=== PATIENT | female | born 1970 | race Caucasian/White ===

== ENCOUNTER 2021-10-06 09:58 | Inpatient (IN) ==
--- NOTE | 2021-10-06 10:41 | Emergency Department Note ---
History of Present Illness General Chief complaint: Abdominal Pain Stated complaint: ABD PAIN, CRAMPS, HAD ENDOSCOPY ON THURSDAY Time Seen by Provider: 10/06/21 10:20 Source: patient Mode of arrival: ambulatory Limitations: no limitations History of Present Illness Provider complaint: Abdominal pain, diarrhea Maximum Pain Intensity: 7 This is a 51-year-old female who presents emerged from complaining of abdominal pain and diarrhea. Patient states she underwent endoscopy this past Thursday with Dr. Chavez of GI. She states she noticed some mild cramping which persisted and worsened into Thursday and yes. She states yesterday evening she began having multiple episodes of diarrhea. She denies noting any black or bloody stools. She states she is not been nauseated or had any vomiting. Patient states she noted the end of the week that her blood pressure was elevate d so she followed up with her PCP and was started on lisinopril 10 mg. Patient states she undergoes endoscopy due to history of Bullock's esophagitis and takes pantoprazole daily. She is also had esophageal stricture dilatation. She states during the EGD she was told that they did a test for bacteria. She has never had a colonoscopy. No other recent travel or known sick contacts. No other dietary changes. No history of IBS or IBD. Pt seen during a time of high acuity and national emergency pandemic while wearing PPE. Home Medications Medication Instructions Recorded Confirmed Type norethindrone 1 mg-ethinyl 1 tab PO DAILY #84 tab 05/06/21 10/06/21 Rx estradiol 20 mcg (21)-iron 75 mg (7) tablet (05/30 ()) pantoprazole 40 mg tablet,delayed 40 mg PO DAILY 05/06/21 10/06/21 History release lisinopril 5 mg tablet 5 mg PO HS 10/06/21 10/06/21 History Allergies Allergy/AdvReac Type Severity Reaction Status Date / Time No Known Allergies Allergy Verified 10/06/21 11:28 Past Med/Surg History Medical History (Updated 10/07/21 @ 18:38 by Astrid Gotti DO) Bullock's esophagus Common migraine without aura Dysmenorrhea Esophageal stricture Gastroparesis GERD (gastroesophageal reflux disease) Hiatal hernia Surgical History H/O lithotripsy H/O tubal ligation History of esophagogastroduodenoscopy (EGD) Family History Mother Dyslipidemia Osteoporosis Cervical cancer Grandmother (Maternal) Breast cancer Father Throat cancer Social History Smoking Status: Never smoker Second Hand Exposure: No; Do You Dip or Chew Tobacco: No; Tobacco Cessation Education Requested by Patient: No Hx Alcohol Use: Yes Hx Substance Use: No Preferred Language: Kyrgyz Communication Ability: Effective Personnel Coordinator Required: No Beliefs That Will Affect Care: None Current Living Situation: Spouse Current Living Situation Comment: lives in house Other Information That Helps Us Care for You: Yes (had an EGD on Thursday) Feels Safe at Home: Yes Safety Concerns: Feels Safe At This Time Assistive Devices: Glasses Review of Systems A total of 10 systems reviewed and were otherwise negative All systems reviewed & are unremarkable except as noted in HPI & below Physical Exam Vital Signs Vital Signs - 24 hr 10/06/21 10:11 10/06/21 11:02 10/06/21 11:03 Temperature 36.4 C L Temperature Source Temporal Artery Scan Pulse Rate 81 72 Pulse Rate [Right Finger] Pulse Rate from SpO2 Sensor 72 Pulse Rhythm [Right Finger] Pulse Strength [Right Finger] Respiratory Rate 18 17 Respiratory Effort / Characteristics Respiratory Depth Blood Pressure 101/70 90/78 L Blood Pressure [Right Arm] Blood Pressure Mean 80 82 Blood Pressure Mean [Right Arm] Pulse Oximetry 98 97 Oxygen Delivery Method Room Air Sepsis New/Unexplained Change in Mental Status No Sepsis Action Taken by Nursing No Action Required 10/06/21 11:30 10/06/21 11:42 10/06/21 13:00 Temperature Temperature Source Pulse Rate 65 Pulse Rate [Right Finger] 64 68 Pulse Rate from SpO2 Sensor 66 Pulse Rhythm [Right Finger] Regular Pulse Strength [Right Finger] Normal Respiratory Rate 22 18 18 Respiratory Effort / Characteristics Non-Labored Respiratory Depth Normal Blood Pressure Blood Pressure [Right Arm] 90/78 L 112/76 Blood Pressure Mean Blood Pressure Mean [Right Arm] 82 88 Pulse Oximetry 97 98 97 Oxygen Delivery Method Room Air Room Air Sepsis New/Unexplained Change in Mental Status Sepsis Action Taken by Nursing 10/06/21 14:26 10/06/21 14:30 10/06/21 15:00 Temperature Temperature Source Pulse Rate 66 64 Pulse Rate [Right Finger] Pulse Rate from SpO2 Sensor 71 Pulse Rhythm [Right Finger] Pulse Strength [Right Finger] Respiratory Rate 20 20 Respiratory Effort / Characteristics Respiratory Depth Blood Pressure Blood Pressure [Right Arm] Blood Pressure Mean Blood Pressure Mean [Right Arm] Pulse Oximetry 98 95 97 Oxygen Delivery Method Sepsis New/Unexplained Change in Mental Status Sepsis Action Taken by Nursing 10/06/21 15:05 Temperature Temperature Source Pulse Rate 66 Pulse Rate [Right Finger] Pulse Rate from SpO2 Sensor Pulse Rhythm [Right Finger] Pulse Strength [Right Finger] Respiratory Rate 20 Respiratory Effort / Characteristics Respiratory Depth Blood Pressure 112/65 Blood Pressure [Right Arm] Blood Pressure Mean 80 Blood Pressure Mean [Right Arm] Pulse Oximetry 98 Oxygen Delivery Method Sepsis New/Unexplained Change in Mental Status Sepsis Action Taken by Nursing GENERAL: alert, uncomfortable appearing, well nourished, no distress, non-toxic EYE EXAM: normal conjunctiva, PERRL and EOM's grossly intact OROPHARYNX: no exudate, no erythema, lips, buccal mucosa, and tongue normal and mucous membranes are moist NECK: supple, no nuchal rigidity, no adenopathy, non-tender LUNGS: Clear to auscultation. Normal chest wall mechanics, no w/r/r HEART: no murmurs, S1 normal and S2 normal ABDOMEN: abdomen soft, generalized discomfort with palpation, normo-active bowel sounds, no masses, no rebound or guarding. BACK: Back is symmetrical on inspection and there is no deformity, no midline tenderness, no CVA tenderness. SKIN: no rashes and no bruising UPPER EXTREMITIES: upper extremities are grossly normal. FROM, nml pulses b/l. LOWER EXTREMITIES: No pitting edema. FROM, nml pulses b/l. NEURO EXAM: Normal sensorium, cranial nerves II-XII grossly intact, normal speech, no gross weakness of arms, no gross weakness of legs. Gross sensation intact. Course Course 1322: Pt updated on results. 1335: Discussed with Dr. Chavez. 1415: Updated on discussion with GI. Administered Medications Hydromorphone HCl (Hydromorphone Inj 0.5 Mg/0.5 Ml Syr) 0.5 mg IV Q3H PRN PRN Reason: Pain (6,7,8,9,10) Stop: 10/20/21 20:15 Last Admin: 10/07/21 13:29 Dose: 0.5 mg Documented by: [id number] Admin: 10/07/21 08:22 Dose: 0.5 mg Documented by: [id number] Admin: 10/07/21 01:06 Dose: 0.5 mg Documented by: [id number] Admin: 10/06/21 21:01 Dose: 0.5 mg Documented by: [id number] Piperacillin Sod/Tazobactam (Sod 3.375 gm/ Dextrose) 115 mls @ 28.75 mls/hr IV Q8H KATHERYN; Protocol Stop: 10/16/21 20:15 Last Infusion: 10/07/21 17:49 Dose: 0 mls/hr Documented by: [id number] Admin: 10/07/21 13:57 Dose: 28.8 mls/hr Documented by: [id number] Infusion: 10/07/21 09:55 Dose: 0 mls/hr Documented by: [id number] Admin: 10/07/21 05:57 Dose: 28.8 mls/hr Documented by: [id number] Infusion: 10/07/21 02:31 Dose: 0 mls/hr Documented by: [id number] Admin: 10/06/21 22:31 Dose: 28.8 mls/hr Documented by: [id number] Pantoprazole Sodium 40 mg/ (Syringe) 10 mls @ 5 mls/min IV DAILY@1100 KATHERYN Stop: 11/06/21 10:59 Last Admin: 10/07/21 11:10 Dose: 5 mls/min Documented by: [id number] Ondansetron HCl (Ondansetron Inj 2 Mg/Ml 2 Ml Vial) 4 mg IV Q6H PRN PRN Reason: Nausea Stop: 11/05/21 20:15 Last Admin: 10/06/21 21:36 Dose: 4 mg Documented by: [id number] Discontinued Medications Dicyclomine HCl (Dicyclomine Hcl 10 Mg Cap) 10 mg PO NOW ONE Stop: 10/06/21 10:50 Last Admin: 10/06/21 11:32 Dose: 10 mg Documented by: [id number] Hydromorphone HCl (Hydromorphone Inj 0.5 Mg/0.5 Ml Syr) 0.25 mg IV NOW STA Stop: 10/06/21 16:15 Last Admin: 10/06/21 16:28 Dose: 0.25 mg Documented by: [id number] Sodium Chloride (Nss 1000ml) 1,000 mls @ 999 mls/hr IV .Q1H1M ONE Stop: 10/06/21 11:49 Last Infusion: 10/06/21 13:02 Dose: 0 mls/hr Documented by: [id number] Admin: 10/06/21 11:32 Dose: 999 mls/hr Documented by: [id number] Acetaminophen (Ofirmev) 1,000 mg in 100 mls @ 400 mls/hr IV NOW STA Stop: 10/06/21 11:03 Last Infusion: 10/06/21 11:48 Dose: 0 mls/hr Documented by: [id number] Admin: 10/06/21 11:32 Dose: 400 mls/hr Documented by: [id number] Sodium Chloride (Nss 1000ml) 1,000 mls @ 999 mls/hr IV .Q1H1M ONE Stop: 10/06/21 13:02 Last Infusion: 10/06/21 13:35 Dose: 0 mls/hr Documented by: [id number] Admin: 10/06/21 12:18 Dose: 999 mls/hr Documented by: [id number] Sodium Chloride (Nss 1000ml) 1,000 mls @ 250 mls/hr IV .Q4H KATHERYN Stop: 11/05/21 16:14 Last Infusion: 10/06/21 20:28 Dose: 0 mls/hr Documented by: [id number] Admin: 10/06/21 20:15 Dose: Not Given Documented by: [id number] Admin: 10/06/21 16:28 Dose: 250 mls/hr Documented by: [id number] Piperacillin Sod/Tazobactam Sod (Zosyn) 4.5 gm in 120 mls @ 240 mls/hr IV NOW ONE Stop: 10/06/21 17:14 Last Infusion: 10/06/21 17:24 Dose: 0 mls/hr Documented by: [id number] Admin: 10/06/21 16:54 Dose: 240 mls/hr Documented by: [id number] Lactated Ringer's (Lr) 1,000 mls @ 125 mls/hr IV .Q8H KATHERYN Stop: 10/07/21 12:15 Last Infusion: 10/07/21 13:58 Dose: 0 mls/hr Documented by: [id number] Admin: 10/07/21 05:00 Dose: 125 mls/hr Documented by: [id number] Infusion: 10/07/21 05:00 Dose: 125 mls/hr Documented by: [id number] Admin: 10/06/21 21:00 Dose: 125 mls/hr Documented by: [id number] Magnesium Sulfate/Dextrose (Magnesium Sulfate / D5w) 1 gm in 100 mls @ 50 mls/hr IV ONE ONE Stop: 10/07/21 00:38 Last Infusion: 10/07/21 03:04 Dose: 0 mls/hr Documented by: [id number] Admin: 10/07/21 01:04 Dose: 50 mls/hr Documented by: [id number] Ioversol (Optiray 320 125ml) 94 ml IV ONCE ONE Stop: 10/06/21 12:08 Last Admin: 10/06/21 12:08 Dose: 94 ml Documented by: [id number] Ketorolac Tromethamine (Ketorolac Tromethamine 15 Mg/Ml Vial) 10 mg IV NOW ONE Stop: 10/06/21 14:36 Last Admin: 10/06/21 14:50 Dose: 10 mg Documented by: [id number] Metoclopramide HCl (Metoclopramide Hcl Inj 5 Mg/Ml 2 Ml Vial) 5 mg IV ONE ONE Stop: 10/06/21 14:36 Last Admin: 10/06/21 14:50 Dose: 5 mg Documented by: [id number] Morphine Sulfate (Morphine Sulfate 4 Mg/Ml 1 Ml Carp\Vial) 4 mg IV NOW STA Stop: 10/06/21 13:44 Last Admin: 10/06/21 13:59 Dose: 4 mg Documented by: [id number] Medical Decision Making Differential Diagnosis Differential diagnoses includes but is not limited to gastritis, peptic ulcer disease, GERD, gallbladder disease, pancreatitis, small bowel obstruction, acute coronary syndrome, pericarditis, ischemic bowel, irritable bowel disease, irritable bowel syndrome, appendicitis, diverticulitis, malignancy, hernia, urinary tract infection, torsion, [/ectopic (if female)], perforation, trauma, infectious. Medical Records Attestation: I reviewed the patient's medical records. Home Medications Current Medication List: was personally reviewed by me Laboratory Data Attestation: I reviewed the patient's lab results. Result diagrams: 10/07/21 05:57 10/07/21 05:57 Lab Results 10/06/21 10/06/21 10/06/21 Range/Units 11:16 11:16 14:30 WBC 11.86 H (4.8-10.8) K/uL RBC 4.45 (4.2-5.4) M/uL Hgb 14.7 (12.0-16.0) g/dL Hct 42.5 (37-47) % MCV 95.5 (80-100) fL MCH 33.0 (25-34) pg MCHC 34.6 (32-36) g/dL RDW Std Deviation 44.0 (36.4-46.3) fL RDW Coeff of Heide 12.8 (11.5-14.5) % Plt Count 308 (130-400) K/uL MPV 10.6 H (7.4-10.4) fL Immature Gran % (Auto) 0.3 % Neut % (Auto) 75.7 % Lymph % (Auto) 17.8 % [place] % (Auto) 5.7 % Eos % (Auto) 0.3 % Baso % (Auto) 0.2 % Neut # (Auto) 8.98 H (1.4-6.5) K/uL Lymph # (Auto) 2.11 (1.2-3.4) K/uL [place] # (Auto) 0.68 H (0.11-0.59) K/uL Eos # (Auto) 0.04 (0-0.5) K/uL Baso # (Auto) 0.02 (0-0.2) K/uL Immature Gran # (Auto) 0.03 H (0.00-0.02) K/uL Sodium 136 (136-145) mmol/L Potassium 4.2 (3.5-5.1) mmol/L Chloride 106 (98-107) mmol/L Carbon Dioxide 20 L (21-32) mmol/L Anion Gap 10 (3-11) BUN 20 (6-23) mg/dl Creatinine 1.45 H (0.6-1.2) mg/dl Est Cr Clr Drug Dosing 45.8 ml/min Est GFR ( Amer) 48.5 ml/min Est GFR (Non-Af Amer) 41.9 ml/min BUN/Creatinine Ratio 13.8 (10-20) Glucose 99 (70-99(Fasting)) mg/dl Calcium 8.9 (8.5-10.1) mg/dl Magnesium 1.9 (1.7-2.4) mg/dl Total Bilirubin 0.6 (0.2-1.0) mg/dl AST 16 (13-39) U/L ALT 19 (7-52) U/L Alkaline Phosphatase 44 (34-104) U/L Total Protein 6.9 (6.0-8.3) gm/dl Albumin 3.9 (3.4-5.0) gm/dl Globulin 3.0 (2.5-4.0) gm/dl Albumin/Globulin Ratio 1.3 (0.9-2) Lipase 20 (11-82) U/L Stl C. cayetanensis PCR Not Detected (NotDetected) Stool Rotavirus A PCR Not Detected (NotDetected) Stl Adenov F 40/41 PCR Not Detected (NotDetected) Stool Astrovirus (PCR) Not Detected (NotDetected) Stool Campylobacter PCR Not Detected (NotDetected) Stl C. diff Tox A/B PCR Not Detected (NotDetected) Stool Cryptosporidium PCR Not Detected (NotDetected) Stl E.coli Shiga Tox PCR Not Detected (NotDetected) Stl Enterotoxigenic E PCR Not Detected (NotDetected) Stool EPEC (PCR) Not Detected (NotDetected) Stool EAEC (PCR) Not Detected (NotDetected) Stl E. histolytica PCR Not Detected (NotDetected) Stool Giardia Lamblia PCR Not Detected (NotDetected) Stool Salmonella PCR Not Detected (NotDetected) Stool Sapovirus (PCR) Not Detected (NotDetected) Stl P. shigelloides PCR Not Detected (NotDetected) Stl Shigella/EIEC PCR Not Detected (NotDetected) St Y.enterocolitica PCR Not Detected (NotDetected) Stool Vibrio (PCR) Not Detected (NotDetected) Stl Vibrio cholerae PCR Not Detected (NotDetected) Stl Norovirus GI/GII PCR Not Detected (NotDetected) SARS-CoV-2, RNA, NAAT (NEGATIVE) 05/29/22 Range/Units 16:30 WBC (4.8-10.8) K/uL RBC (4.2-5.4) M/uL Hgb (12.0-16.0) g/dL Hct (37-47) % MCV (80-100) fL MCH (25-34) pg MCHC (32-36) g/dL RDW Std Deviation (36.4-46.3) fL RDW Coeff of Heide (11.5-14.5) % Plt Count (130-400) K/uL MPV (7.4-10.4) fL Immature Gran % (Auto) % Neut % (Auto) % Lymph % (Auto) % [place] % (Auto) % Eos % (Auto) % Baso % (Auto) % Neut # (Auto) (1.4-6.5) K/uL Lymph # (Auto) (1.2-3.4) K/uL [place] # (Auto) (0.11-0.59) K/uL Eos # (Auto) (0-0.5) K/uL Baso # (Auto) (0-0.2) K/uL Immature Gran # (Auto) (0.00-0.02) K/uL Sodium (136-145) mmol/L Potassium (3.5-5.1) mmol/L Chloride (98-107) mmol/L Carbon Dioxide (21-32) mmol/L Anion Gap (3-11) BUN (6-23) mg/dl Creatinine (0.6-1.2) mg/dl Est Cr Clr Drug Dosing ml/min Est GFR ( Amer) ml/min Est GFR (Non-Af Amer) ml/min BUN/Creatinine Ratio (10-20) Glucose (70-99(Fasting)) mg/dl Calcium (8.5-10.1) mg/dl Magnesium (1.7-2.4) mg/dl Total Bilirubin (0.2-1.0) mg/dl AST (13-39) U/L ALT (7-52) U/L Alkaline Phosphatase (34-104) U/L Total Protein (6.0-8.3) gm/dl Albumin (3.4-5.0) gm/dl Globulin (2.5-4.0) gm/dl Albumin/Globulin Ratio (0.9-2) Lipase (11-82) U/L Stl C. cayetanensis PCR (NotDetected) Stool Rotavirus A PCR (NotDetected) Stl Adenov F 40/41 PCR (NotDetected) Stool Astrovirus (PCR) (NotDetected) Stool Campylobacter PCR (NotDetected) Stl C. diff Tox A/B PCR (NotDetected) Stool Cryptosporidium PCR (NotDetected) Stl E.coli Shiga Tox PCR (NotDetected) Stl Enterotoxigenic E PCR (NotDetected) Stool EPEC (PCR) (NotDetected) Stool EAEC (PCR) (NotDetected) Stl E. histolytica PCR (NotDetected) Stool Giardia Lamblia PCR (NotDetected) Stool Salmonella PCR (NotDetected) Stool Sapovirus (PCR) (NotDetected) Stl P. shigelloides PCR (NotDetected) Stl Shigella/EIEC PCR (NotDetected) St Y.enterocolitica PCR (NotDetected) Stool Vibrio (PCR) (NotDetected) Stl Vibrio cholerae PCR (NotDetected) Stl Norovirus GI/GII PCR (NotDetected) SARS-CoV-2, RNA, NAAT NEGATIVE (NEGATIVE) Imaging Data Radiologist's Impression: Abdomen/Pelvis CT 10/06/21 10:49 CT SCAN OF THE ABDOMEN AND PELVIS WITH IV CONTRAST CLINICAL HISTORY: Generalized abdominal pain. Diarrhea. Recent endoscopy. COMPARISON STUDY: Abdominal ultrasound dated 09/21/2020. TECHNIQUE: Following the IV administration of 94 cc of Optiray 320, CT scan of the abdomen and pelvis is performed from the lung bases to the proximal femora. Images are reviewed in the axial, sagittal, and coronal planes. IV contrast was administered without complication. A dose lowering technique was utilized adhering to the principles of ALARA. CT DOSE: 566.81 mGy.cm FINDINGS: Lung bases: The heart is normal in size and without pericardial effusion. The lung bases are clear. A small hiatal hernia is noted. Liver: The contrast-enhanced liver is normal in size, contour, and attenuation. There is no intrahepatic biliary ductal dilatation. The hepatic veins and portal veins are patent. Gallbladder: Unremarkable. Spleen: Normal in size and attenuation. Pancreas: Unremarkable. Adrenal glands: Unremarkable. 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 The renal moieties are normal in size and without hydronephrosis. Foci of cortical scarring are noted in the left upper pole. The renal moieties enhance symmetrically. Small bilateral nonobstructing renal calculi measure up to 4 mm. A circumaortic left renal vein is incidentally noted. Abdominal vasculature: The abdominal aorta is normal in course and caliber. Bowel: There are markedly thick walled and edematous loops of small bowel in the right mid to lower abdomen with mucosal hyperemia, surrounding inflammation, and interloop fluid. The appearance is consistent with a nonspecific enteritis. This spares the distal/terminal ileum. The upstream small bowel loops are distended and fluid-filled measuring up to 2.8 cm in diameter. Liquid stool is noted in the colon. There is mild colonic diverticulosis without CT evidence of acute diverticulitis. The appendix is well-visualized and normal. Peritoneum: There is a small volume of perihepatic and perisplenic ascites. There is also a small amount of interloop fluid throughout the abdomen and fluid in the pelvis. No intraperitoneal free air is identified. There is a fat-con taining umbilical hernia. Lymphadenopathy: None. Pelvic viscera: The bladder is decompressed and appears circumferentially thick walled. The uterus and adnexa are normal as visualized. Skeletal structures: No lytic or blastic lesions are seen. IMPRESSION: 1. Findings are consistent with a severe nonspecific enteritis as detailed above. This is likely on an infectious or inflammatory basis and clinical correlation will be required. 2. There is no high-grade bowel obstruction. The upstream small bowel loops are distended and fluid-filled, and this likely represents low-grade/partial obstruction secondary to the small bowel edema. 3. There is interloop fluid and a small one of abdominopelvic ascites. 4. No intraperitoneal free air is identified. 5. Horseshoe kidney and bilateral nephrolithiasis. 6. The bladder wall appears circumferentially thickened. Correlate with clinical findings and urinalysis. 7. Additional findings as above. ACT 112: Negative or not required by law. Electronically signed by: Benjamin Lugo M.D. 10/06/2021 12:37 PM ECG Data Attestation: I personally reviewed and interpreted this ECG as follows: Indication: + abdominal pain Rate (beats per minute): 63 Rhythm: + normal sinus ECG Intervals/blocks: + Normal QRS and + Normal QT ECG [place]: + Normal ECG ST segments: + Nonspecific ST abnormalities MDM Narrative An order was placed for continuous cardiac monitoring. The monitor shows a rate of _60_ with _normal sinus_ rhythm. This is a 51-year-old female presents due to concern for worsening abdominal pain, diarrhea, after recent endoscopy. Patient referred by GI due to concern for postprocedural complication. Patient was afebrile hemodynamically stable. Labs drawn and sent and she was started on IV fluids and given medication for pain and nausea. CT did reveal significant enteritis which was creating the appearance of an evolving partial small bowel obstruction. Patient did receive several doses of IV pain medication. Due to concern for persistent symptoms as well as CT findings, case was discussed with GI and eventually with hospitalist for additional inpatient evaluation and management. Patient was made aware of all results, verbalized understanding, and was in agreement with plan. Impression & Plan Abdominal pain, Enteritis, Diarrhea, Dehydration Discharge Plan Visit Data Chief Complaint: Abdominal Pain Stated Complaint: ABD PAIN, CRAMPS, HAD ENDOSCOPY ON THURSDAY ED Provider: Astrid Gotti Discharge Problem: Abdominal pain, Enteritis, Diarrhea, Dehydration Patient Disposition: Admitted As Inpatient Discharge Instructions Interventions: ED Discharge Assessment Last Done: 10/06/21 19:58 Discharge Problem: Abdominal pain Qualifiers: Abdominal location: generalized Qualified Code(s): R10.84 - Generalized abdominal pain Diarrhea Qualifiers: Diarrhea type: unspecified type Qualified Code(s): R19.7 - Diarrhea, unspecified
[2021-10-06] MEDS ORDERED: SODIUM CHLORIDE 0.9% 1000ML 1,000 ML IV ONE ×2 (10:49→12:02)
[2021-10-06] MEDS ORDERED: DICYCLOMINE HCL 10 MG CAP PO ONE (10:49)
[2021-10-06] MEDS ORDERED: ACETAMINOPHEN 1,000 MG/100 ML VIAL IV STA (10:49)
[2021-10-06 11:36] LABS: Basophils # (auto) 0.02 K/uL (0-0.2); Basophils % (auto) 0.2 %; Eosinophils # (auto) 0.04 K/uL (0-0.5); Eosinophils % (auto) 0.3 %; Hematocrit (blood only) 42.5 % (37-47); Hemoglobin 14.7 g/dL (12.0-16.0); Immature Granulocytes # (auto) 0.03 K/uL (0.00-0.02); Immature Granulocytes % (auto) 0.3 %; Lymphocytes # (auto) 2.11 K/uL (1.2-3.4); Lymphocytes % (auto) 17.8 %; Mean Corpuscular Hgb Conc 34.6 g/dL (32-36); Mean Corpuscular Volume 95.5 fL (80-100); Mean Platelet Volume 10.6 fL (7.4-10.4); Monocytes # (auto) 0.68 K/uL (0.11-0.59); Monocytes % (auto) 5.7 %; Neutrophils # (auto) 8.98 K/uL (1.4-6.5); Neutrophils % (auto) 75.7 %; Platelet Count 308 K/uL (130-400); RDW Coefficient of Variation 12.8 % (11.5-14.5); Red Blood Count 4.45 M/uL (4.2-5.4); White Blood Count 11.86 K/uL (4.8-10.8)
[2021-10-06 11:47] LABS: Albumin Globulin Ratio 1.3 (0.9-2); Albumin Level 3.9 gm/dl (3.4-5.0); BUN Creatinine Ratio 13.8 (10-20); Bilirubin,Total 0.6 mg/dl (0.2-1.0); Calcium 8.9 mg/dl (8.5-10.1); Creatinine Clr Calc Pharmacy 45.8 ml/min; Est GFR (African American) 48.5 ml/min; Est GFR (Non-African American) 41.9 ml/min; Magnesium 1.9 mg/dl (1.7-2.4); Potassium 4.2 mmol/L (3.5-5.1); Total Protein 6.9 gm/dl (6.0-8.3)
[2021-10-06] MEDS ORDERED: OPTIRAY 320 125ml IV ONE (12:07)
--- NOTE | 2021-10-06 12:40 | CT Scan Report ---
CT SCAN OF THE ABDOMEN AND PELVIS WITH IV CONTRAST CLINICAL HISTORY: Generalized abdominal pain. Diarrhea. Recent endoscopy. COMPARISON STUDY: Abdominal ultrasound dated 09/21/2020. TECHNIQUE: Following the IV administration of 94 cc of Optiray 320, CT scan of the abdomen and pelvi s is performed from the lung bases to the proximal femora. Images are reviewed in the axial, sagittal , and coronal planes. IV contrast was administered without complication. A dose lowering technique wa s utilized adhering to the principles of ALARA. CT DOSE: 566.81 mGy.cm FINDINGS: Lung bases: The heart is normal in size and without pericardial effusion. The lung bases are clear. A small hiatal hernia is noted. Liver: The contrast-enhanced liver is normal in size, contour, and attenuation. There is no intrahepa tic biliary ductal dilatation. The hepatic veins and portal veins are patent. Gallbladder: Unremarkable. Spleen: Normal in size and attenuation. Pancreas: Unremarkable. Adrenal glands: Unremarkable. 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 The renal moieties are normal in size and without hydronephrosis. Foci of cortical scarring are noted in the left upper pole. The renal moieties enhanc e symmetrically. Small bilateral nonobstructing renal calculi measure up to 4 mm. A circumaortic left renal vein is incidentally noted. Abdominal vasculature: The abdominal aorta is normal in course and caliber. Bowel: There are markedly thick walled and edematous loops of small bowel in the right mid to lower a bdomen with mucosal hyperemia, surrounding inflammation, and interloop fluid. The appearance is consi stent with a nonspecific enteritis. This spares the distal/terminal ileum. The upstream small bowel l oops are distended and fluid-filled measuring up to 2.8 cm in diameter. Liquid stool is noted in the colon. There is mild colonic diverticulosis without CT evidence of acute diverticulitis. The appendix is well-visualized and normal. Peritoneum: There is a small volume of perihepatic and perisplenic ascites. There is also a small silvino unt of interloop fluid throughout the abdomen and fluid in the pelvis. No intraperitoneal free air is identified. There is a fat-containing umbilical hernia. Lymphadenopathy: None. Pelvic viscera: The bladder is decompressed and appears circumferentially thick walled. The uterus an d adnexa are normal as visualized. Skeletal structures: No lytic or blastic lesions are seen. IMPRESSION: 1. Findings are consistent with a severe nonspecific enteritis as detailed above. This is likely on a n infectious or inflammatory basis and clinical correlation will be required. 2. There is no high-grade bowel obstruction. The upstream small bowel loops are distended and fluid-f illed, and this likely represents low-grade/partial obstruction secondary to the small bowel edema. 3. There is interloop fluid and a small one of abdominopelvic ascites. 4. No intraperitoneal free air is identified. 5. Horseshoe kidney and bilateral nephrolithiasis. 6. The bladder wall appears circumferentially thickened. Correlate with clinical findings and urinaly sis. 7. Additional findings as above. ACT 112: Negative or not required by law. Electronically signed by: Benjamin Lugo M.D. 10/06/2021 12:37 PM
[2021-10-06] MEDS ORDERED: MoRPHine SULFATE 4 MG/ML 1 ML CARP\\VIAL IV STA (13:43)
[2021-10-06] MEDS ORDERED: KETOROLAC TROMETHAMINE 15 MG/ML VIAL IV ONE (14:35)
[2021-10-06] MEDS ORDERED: METOCLOPRAMIDE HCL INJ 5 MG/ML 2 ML VIAL IV ONE (14:35)
--- NOTE | 2021-10-06 14:51 | Electrocardiogram Report ---
Test Reason : Blood Pressure : / mmHG Vent. Rate : 063 BPM Atrial Rate : 063 BPM P-R Int : 110 ms QRS Dur : 072 ms QT Int : 396 ms P-R-T Axes : 025 042 056 degrees QTc Int : 405 ms Sinus rhythm with short [place] Otherwise normal ECG No previous ECGs available Confirmed by Elder Pan ([id number]) on 10/06/2021 2:51:43 PM Referred By: REFERRED SELF Confirmed By:Elder Pan
[2021-10-06 15:53] LABS: Adenovirus F 40/41 PCR Not Detected (NotDetected); Astrovirus PCR Not Detected (NotDetected); Campylobacter PCR Not Detected (NotDetected); Clostridium diff Toxin A/B PCR Not Detected (NotDetected); Cryptosporidium PCR Not Detected (NotDetected); Cyclospora cayetanensis PCR Not Detected (NotDetected); Entamoeba histolytica PCR Not Detected (NotDetected); Enteroaggregative E.coli(EAEC) Not Detected (NotDetected); Enteropathogenic E.coli (EPEC) Not Detected (NotDetected); Enterotoxigenic E.coli (ETEC) Not Detected (NotDetected); Giardia lamblia PCR Not Detected (NotDetected); Norovirus GI/GII PCR Not Detected (NotDetected); Plesiomonas shigelloides PCR Not Detected (NotDetected); Rotavirus A PCR Not Detected (NotDetected); Salmonella PCR Not Detected (NotDetected); Sapovirus PCR Not Detected (NotDetected); Shiga-like Toxin E.coli (STEC) Not Detected (NotDetected); Shigella/Enteroinvasive E.coli Not Detected (NotDetected); Vibrio cholerae PCR Not Detected (NotDetected); Vibrio species PCR Not Detected (NotDetected); Yersinia enterocolitica PCR Not Detected (NotDetected)
[2021-10-06] MEDS ORDERED: HYDROmorphone INJ 0.5 MG/0.5 ML SYR IV STA (16:14)
[2021-10-06] MEDS: SODIUM CHLORIDE 0.9% 1000ML 1,000 ML IV SCH ×2 (16:28→20:15)
[2021-10-06] MEDS ORDERED: PIPERACILLIN/TAZOBACTAM 4.5 GM/120 ML BAG IV ONE (16:45)
[2021-10-06] MEDS ORDERED: PIPERACILL/TAZOBAC CONSULT ACTIVE PRN ×2 (16:45→20:16)
--- NOTE | 2021-10-06 17:03 | History & Physical Report ---
Date of Service October 06, 2021 Assessment & Plan (1) Partial small bowel obstruction: Plan: - NPO with IVF; will defer NGT placement for now in absence of n/v - Consult [facility] - KUB in AM to monitor for progression. - CBC/BMP in AM. - Zofran or Phenergan ordered for nausea/vomiting. - IV Tylenol or Dilaudid ordered for pain. - Recently started on lisinopril 2 days ago, 10/04. ? if this is FELIPE inhibitor induced gut angioedema. Her symptoms did start prior to initiation of the medication, however became acutely worse after first 2 doses. (2) Enteritis: Plan: - As seen on CT A/P. Frequent nonbloody diarrhea last evening, without fever/chils - Stool panel neg; given recent EGD on Thursday (10/02) will place on Zosyn for now. (3) Acute kidney injury: Plan: - Cr 1.45, eGFR 42. No baseline labs. - Did just start lisinopril 5mg on Thursday; will hold for ANDREW/NPO status. - LRs 125 cc/hr. - Monitor on am labs. (4) Hypertension: Plan: - Hold lisinopril due to ANDREW - Will order 10 mg IV hydralazine q8h prn for SBP >180 and/or DBP >110. (5) Ventricular tachycardia: Plan: Patient had a 12 beat run of ventricular tachycardia in the ER that was asymptomatic Monitor on telemetry Check echocardiogram Make sure electrolytes remain replete (6) Bullock's esophagus: Plan: - Surveillance EGD last week 10/[address] Chavez. - Switch po Protonix to IV while NPO. (7) GERD (gastroesophageal reflux disease): Plan: - Admit to med/surg - SCDs for DVT ppx. - Full Code. History of Present Illness Chief Complaint: Abdominal pain x 4 days Primary Care Provider: Pedro Cruz Mrs. Salcedo is a 51-year-old female with past medical history significant for GERD w/ Bullock's esophagus, gastroparesis, migraines, and hypertension who presents today with worsening abdominal pain and diarrhea. She had a surveillance EGD on Thursday, 10/02 for her Bullock's esophagus, procedure went well without complications. morning, she developed mild abdominal cramping that she was able to tolerate at home, however it has become progressively worse. Last evening, her pain became so severe that she was unable to sleep throughout the night and began having frequent episodes of nonbloody diarrhea. She has been without fever/chills, nausea, or vomiting. Has not been eating or drinking much due to her symptoms. Had an isolated day of similar symptoms several weeks ago but without diarrhea, however reports she took a laxative at that time and had felt fine up until now. In ED, VS wnl and stable, labs largely unremarkable, significant for WBC 11.8, cr 1.45 (no baseline). Stool panel negative. CT a/p with findings consistent with a severe nonspecific enteritis and small bowel loops are distended and fluid-filled, ? low-grade/partial obstruction secondary to the small bowel edema. Allergies Allergy/AdvReac Type Severity Reaction Status Date / Time No Known Allergies Allergy Verified 10/06/21 11:28 Home Medications Medication Instructions Recorded Confirmed Type norethindrone 1 mg-ethinyl 1 tab PO DAILY #84 tab 05/06/21 10/06/21 Rx estradiol 20 mcg (21)-iron 75 mg (7) tablet (05/30 (28)) pantoprazole 40 mg tablet,delayed 40 mg PO DAILY 05/06/21 10/06/21 History release lisinopril 5 mg tablet 5 mg PO HS 10/06/21 10/06/21 History Past Med/Surg History Medical History (Updated 10/06/21 @ 22:33 by Tanika Marcos MD) Bullock's esophagus Common migraine without aura Dysmenorrhea Esophageal stricture Gastroparesis GERD (gastroesophageal reflux disease) Hiatal hernia Surgical History H/O lithotripsy H/O tubal ligation History of esophagogastroduodenoscopy (EGD) Family History Mother Dyslipidemia Osteoporosis Cervical cancer Grandmother (Maternal) Breast cancer Father Throat cancer Social History Smoking Status: Never smoker Second Hand Exposure: No; Do You Dip or Chew Tobacco: No; Tobacco Cessation Education Requested by Patient: No Hx Alcohol Use: Yes Hx Substance Use: No Preferred Language: Slovak Communication Ability: Effective Office Automation Clerk Required: No Beliefs That Will Affect Care: None Current Living Situation: Spouse Current Living Situation Comment: lives in house Other Information That Helps Us Care for You: Yes (had an EGD on Thursday) Feels Safe at Home: Yes Safety Concerns: Feels Safe At This Time Assistive Devices: Glasses Review of Systems Review of Systems: Constitutional: No fever/chills, weakness, fatigue, myalgias, anorexia, night sweats Eyes: No diplopia, no worsening or blurred vision ENT: normal hearing, no trouble swallowing Respiratory: No cough, sputum, dyspnea at rest or on exertion Cardiovascular: No chest pain, tightness or palpitations Abdomen: diffuse abdominal pain with nonbloody diarrhea; no nausea or vomiting : Denies dysuria, hematuria, increased urgency/frequency, urinary retention Musculoskeletal: No joint pain, calf pain, swelling Neurologic: No weakness, numbness/tingling, or balance problems Psychiatric: No anxiety or depression Skin: No rash or itch Physical Exam Physical Exam: General: awake, alert, no apparent distress Head: Normocephalic, atraumatic ENT: PERRL, EOMI, no pharyngeal exudate, mucous membranes moist Chest: Clear to auscultation, on room air, no adventitious breath sounds Cardiac: Regular rate and rhythm, no murmur, no JVD, normal peripheral pulses, good capillary refill Abdominal: diffusely TTP; NABS x 4 quadrants, soft, no rebound, guarding or tenderness Extremities: Normal inspection, no peripheral edema or erythema, calfs nontender to palpation Psych: Normal mood and affect Neuro: AAO x 3, strength intact bilaterally and rated 5/5, no motor deficits, speech is clear, no peripheral sensory deficits Skin: no rash or erythema Results & Data Results & Data ([facility]) Vital Signs (Past 12 Hours) Vital Signs Temp Pulse Pulse Resp BP BP Pulse Ox 10/06/21 16:00 69 18 97/61 L 95 10/06/21 15:30 55 L 19 96 10/06/21 15:05 66 20 112/65 98 10/06/21 15:00 64 20 97 10/06/21 14:30 66 20 95 10/06/21 14:26 98 10/06/21 13:00 68 18 112/76 97 10/06/21 11:42 64 18 90/78 L 98 10/06/21 11:30 65 22 97 10/06/21 11:03 72 17 97 10/06/21 11:02 90/78 L 10/06/21 10:11 36.4 C L 81 18 101/70 98 Laboratory Results Abnormal lab results 10/06/21 10/06/21 Range/Units 11:16 11:16 WBC 11.86 H (4.8-10.8) K/uL MPV 10.6 H (7.4-10.4) fL Neut # (Auto) 8.98 H (1.4-6.5) K/uL [place] # (Auto) 0.68 H (0.11-0.59) K/uL Immature Gran # (Auto) 0.03 H (0.00-0.02) K/uL Carbon Dioxide 20 L (21-32) mmol/L Creatinine 1.45 H (0.6-1.2) mg/dl Diagnostic Findings Abdomen/Pelvis CT 10/06/21 10:49 CT SCAN OF THE ABDOMEN AND PELVIS WITH IV CONTRAST CLINICAL HISTORY: Generalized abdominal pain. Diarrhea. Recent endoscopy. COMPARISON STUDY: Abdominal ultrasound dated 09/21/2020. TECHNIQUE: Following the IV administration of 94 cc of Optiray 320, CT scan of the abdomen and pelvis is performed from the lung bases to the proximal femora. Images are reviewed in the axial, sagittal, and coronal planes. IV contrast was administered without complication. A dose lowering technique was utilized adhering to the principles of ALARA. CT DOSE: 566.81 mGy.cm FINDINGS: Lung bases: The heart is normal in size and without pericardial effusion. The lung bases are clear. A small hiatal hernia is noted. Liver: The contrast-enhanced liver is normal in size, contour, and attenuation. There is no intrahepatic biliary ductal dilatation. The hepatic veins and portal veins are patent. Gallbladder: Unremarkable. Spleen: Normal in size and attenuation. Pancreas: Unremarkable. Adrenal glands: Unremarkable. 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 The renal moieties are normal in size and without hydronephrosis. Foci of cortical scarring are noted in the left upper pole. The renal moieties enhance symmetrically. Small bilateral nonobstructing renal calculi measure up to 4 mm. A circumaortic left renal vein is incidentally noted. Abdominal vasculature: The abdominal aorta is normal in course and caliber. Bowel: There are markedly thick walled and edematous loops of small bowel in the right mid to lower abdomen with mucosal hyperemia, surrounding inflammation, and interloop fluid. The appearance is consistent with a nonspecific enteritis. This spares the distal/terminal ileum. The upstream small bowel loops are distended and fluid-filled measuring up to 2.8 cm in diameter. Liquid stool is noted in the colon. There is mild colonic diverticulosis without CT evidence of acute diverticulitis. The appendix is well-visualized and normal. Peritoneum: There is a small volume of perihepatic and perisplenic ascites. There is also a small amount of interloop fluid throughout the abdomen and fluid in the pelvis. No intraperitoneal free air is identified. There is a fat- containing umbilical hernia. Lymphadenopathy: None. Pelvic viscera: The bladder is decompressed and appears circumferentially thick walled. The uterus and adnexa are normal as visualized. Skeletal structures: No lytic or blastic lesions are seen. IMPRESSION: 1. Findings are consistent with a severe nonspecific enteritis as detailed above. This is likely on an infectious or inflammatory basis and clinical c orrelation will be required. 2. There is no high-grade bowel obstruction. The upstream small bowel loops are distended and fluid-filled, and this likely represents low-grade/partial obstruction secondary to the small bowel edema. 3. There is interloop fluid and a small one of abdominopelvic ascites. 4. No intraperitoneal free air is identified. 5. Horseshoe kidney and bilateral nephrolithiasis. 6. The bladder wall appears circumferentially thickened. Correlate with clinical findings and urinalysis. 7. Additional findings as above. ACT 112: Negative or not required by law. Electronically signed by: Benjamin Lugo M.D. 10/06/2021 12:37 PM ECG Additional Comments: Sinus rhythm with short NC, otherwise normal ECG Code Status & VTE Plan Code Status Full Code. VTE Prophylaxis Plan VTE Prophylaxis will be ordered: Yes Supervising Physician Co-Signing Physician Notes PA Supervision Note: I personally saw and examined the patient. I verified all ortega points and agree with GARY Clark with the following exceptions and/or additions: This patient is a 51-year-old female with history of Bullock's esophagus, GERD, HTN who presents to the ER with 3 to 4 days of severe diffuse crampy abdominal pain followed by multiple loose nonbloody bowel movements. No fevers or chills. Some nausea but no vomiting. Feels abdominal bloating. O- Vitals reviewed Gen: AAOx3, NAD HEENT: Anicteric sclerae, EOMI CV: RRR no mgr nl S1S2 Pulm: CTAB no wcr Abd: +BS soft positive tenderness palpation across mid and lower abdomen without guarding or rebound, ND no masses or hernias Ext: No edema, 2+ DP pulses Skin: No rashes, warm/dry Neuro: Full strength throughout Labs, rads, ECG reviewed A/L-36-npuz-old female with history as above, here with small bowel enteritis and early partial small bowel obstruction. Small bowel enteritis likely infectious in nature. Stool study PCR is negative Treat empirically with IV Zosyn Keep n.p.o., continue IV fluids for hydration, replete electrolytes-give 1 g magnesium sulfate Follow-up KUB in the a.m. Low threshold to place NG tube if has any worsening nausea or vomiting For ventricular [id number] on telemetry, check echocardiogram tomorrow for ejection fraction PG Care Time/CCT Total # of Minutes Spent Total Time Spent with Patient: Total time spent is greater than 50% in coordination of care (as documented) at patient's floor/unit and/or counseling patient: Coding Level of Care Code 48258 Initial Inpt Care Lvl 3 Diagnoses Bullock's esophagus K22.70 GERD (gastroesophageal reflux disease) K21.9 Partial small bowel obstruction K56.600 Enteritis K52.9 Acute kidney injury N17.9 Hypertension I10 Ventricular tachycardia I47.2
[2021-10-06] MEDS ORDERED: PROMETHAZINE HCL 12.5 MG in SODIUM CHLORIDE 0.9% 50 ML IV PRN (20:16)
[2021-10-06] MEDS ORDERED: hydrALAZINE HCL 20 MG/ML VIAL IV PRN (20:16)
[2021-10-06] MEDS ORDERED: ONDANSETRON INJ 2 MG/ML 2 ML VIAL IV PRN (20:16)
[2021-10-06] MEDS ORDERED: ACETAMINOPHEN 1000 MG/100 ML IV IV PRN (20:16)
[2021-10-06] MEDS: LACTATED RINGER'S 1,000 ML IV SCH (21:00)
[2021-10-06] MEDS: HYDROmorphone INJ 0.5 MG/0.5 ML SYR IV PRN (21:01)
[2021-10-06] MEDS: PIPERACILLIN/TAZOBACTAM 3.375 GM in DEXTROSE 5% 100 ML IV SCH (22:31)
[2021-10-06] MEDS ORDERED: MAGNESIUM SULFATE / D5W 1 GM/100 ML BAG IV ONE (22:39)
[2021-10-07] MEDS: HYDROmorphone INJ 0.5 MG/0.5 ML SYR IV PRN ×4 (01:06→21:42)
[2021-10-07] MEDS: LACTATED RINGER'S 1,000 ML IV SCH (05:00)
[2021-10-07] MEDS: PIPERACILLIN/TAZOBACTAM 3.375 GM in DEXTROSE 5% 100 ML IV SCH ×3 (05:57→21:37)
[2021-10-07 07:16] LABS: BUN Creatinine Ratio 15.2 (10-20); Calcium 7.7 mg/dl (8.5-10.1); Creatinine Clr Calc Pharmacy 69.4 ml/min; Est GFR (Non-African American) 66.4 ml/min; Magnesium 2.1 mg/dl (1.7-2.4); Potassium 4.1 mmol/L (3.5-5.1)
[2021-10-07 07:26] LABS: Basophils # (auto) 0.02 K/uL (0-0.2); Basophils % (auto) 0.3 %; Eosinophils # (auto) 0.22 K/uL (0-0.5); Eosinophils % (auto) 2.9 %; Hematocrit (blood only) 34.7 % (37-47); Hemoglobin 11.8 g/dL (12.0-16.0); Lymphocytes # (auto) 2.03 K/uL (1.2-3.4); Mean Corpuscular Hemoglobin 33.3 pg (25-34); Mean Platelet Volume 10.6 fL (7.4-10.4); Monocytes # (auto) 0.53 K/uL (0.11-0.59); Neutrophils # (auto) 4.73 K/uL (1.4-6.5); Neutrophils % (auto) 62.8 %; Platelet Count 208 K/uL (130-400); RDW Coefficient of Variation 12.8 % (11.5-14.5); RDW Standard Deviation 46.3 fL (36.4-46.3); Red Blood Count 3.54 M/uL (4.2-5.4); White Blood Count 7.53 K/uL (4.8-10.8)
--- NOTE | 2021-10-07 08:44 | XRay Report ---
XR KUB/Abdomen 1 view CLINICAL HISTORY: monitor progression of SBO TECHNIQUE: 1 view of the abdomen was obtained. Comparison: Comparison is made to CT abdomen pelvis 10/06/2021 FINDINGS: Lung bases are unremarkable. There is no evidence of gaseous distention of the small bowel. Some air and stool is seen in the large bowel. The bowel gas pattern is nonobstructive. IMPRESSION: No evidence of gaseous distention of the small bowel. Findings may represent improvement in small bow el obstruction allowing for differences in technique. ACT 112: Negative or not required by law. Electronically signed by: Darvin Horne M.D. 10/07/2021 8:42 AM
[2021-10-07] MEDS ORDERED: PANTOprazole 40 MG in SYRINGE 0 ML IV SCH (11:00)
--- NOTE | 2021-10-07 13:03 | XCELERA ---
[id number]
--- NOTE | 2021-10-07 14:47 | Gastrointestinal Consultation ---
Date of Consultation October 07, 2021 Assessment & Plan (1) Enteritis: Seems to be improving. Perhaps viral. Continue supportive care. Start clears Barretts---PPI V tach--per hospitalist I, Familia Chavez MD have spent 24 minutes of discrete time performing the activities of this visit which include but are not limited to review of the medical record, obtaining a history, physical exam, and entering information in the electronic record. History of Present Illness Reason for Consultation: enteritis, Attending Physician: Olman Galdamez History of Present Illness cc abd pain, diarrhea HPI Pt with EGD 10/02/2021 noted to have Barretts biopsied and antral erythema biopsies. Day after developed abd cramping then subsequent frequent diarrhea. CT on admit R mid and lower SB thickening, distended SB, small acites and bladder thickening. She had a run of Vtach in the ER as well. She is NPO and no stools since last evening. Abd pain improved. KUB today no abd distensions. WBC 11.8 on admit and normal today. Stool panel for infection normal. Allergies Allergy/AdvReac Type Severity Reaction Status Date / Time No Known Allergies Allergy Verified 10/06/21 11:28 Home Medications Medication Instructions Recorded Confirmed Type norethindrone 1 mg-ethinyl 1 tab PO DAILY #84 tab 05/06/21 10/06/21 Rx estradiol 20 mcg (21)-iron 75 mg (7) tablet (05/30 (28)) pantoprazole 40 mg tablet,delayed 40 mg PO DAILY 05/06/21 10/06/21 History release lisinopril 5 mg tablet 5 mg PO HS 10/06/21 10/06/21 History Patient History Medical History (Updated 10/06/21 @ 22:33 by Tanika Marcos MD) Bullock's esophagus Common migraine without aura Dysmenorrhea Esophageal stricture Gastroparesis GERD (gastroesophageal reflux disease) Hiatal hernia Surgical History H/O lithotripsy H/O tubal ligation History of esophagogastroduodenoscopy (EGD) Family History Mother Dyslipidemia Osteoporosis Cervical cancer Grandmother (Maternal) Breast cancer Father Throat cancer Social History Smoking Status: Never smoker Second Hand Exposure: No; Do You Dip or Chew Tobacco: No; Tobacco Cessation Education Requested by Patient: No Hx Alcohol Use: Yes Hx Substance Use: No Preferred Language: Greenlandic Communication Ability: Effective Manager Transmission Required: No Beliefs That Will Affect Care: None Current Living Situation: Spouse Current Living Situation Comment: lives in house Other Information That Helps Us Care for You: Yes (had an EGD on Thursday) Feels Safe at Home: Yes Safety Concerns: Feels Safe At This Time Assistive Devices: Glasses Review of Systems Review of Systems: All systems reviewed & are unremarkable except as noted in HPI & below Physical Exam Constitutional: WD/WN, vitals as above Eyes: PERRL, conjunctivae normal, anicteric sclerae ENMT: Ears: no hearing impairment and no external ear abnormality Neck: normal visual inspection and trachea midline Respiratory: normal respiratory effort, lungs clear to auscultation Cardiovascular: RRR, no murmur, no edema Gastrointestinal (Abdomen): normal bowel sounds, soft, nontender, no hepatosplenomegaly Skin: normal turgor Neurologic: PERRL, EOMI, accommodation nl, no face palsy, no dysarthria Psychiatric: A+Ox3, euthymic affect Results & Data ([facility]) Vital Signs (Past 12 Hours) Vital Signs Temp Pulse Resp BP BP Pulse Ox 10/07/21 11:19 36.9 C 64 16 105/72 96 10/07/21 07:48 36.6 C 78 16 129/88 98 10/07/21 03:32 36.7 C 52 L 14 104/59 L 96
[2021-10-07] MEDS ORDERED: LACTATED RINGER'S 1,000 ML IV SCH (21:00)
--- NOTE | 2021-10-07 21:30 | Hospitalist Progress Note ---
Date of Service October 07, 2021 Assessment & Plan (1) Enteritis: Plan: etiology uncertain. infectious? ischemic event? other? [employer] stool panel fully negative. No h/o Crohn's disease. BP was never LOW during her recent EGD - if anything was markedly elevated making ischemic event unlikely. Await input from [facility], Dr Chavez. Cont empiric zosyn for now. Keep NPO until Dr Chavez sees in consult. (2) Acute kidney injury: Plan: Peak Cr 1.45 Now 0.99 2nd to #1 Cont IV fluids Repeat BMP am (3) Hypertension: Plan: HOLD lisinopril. Trend BPs. (4) Bullock's esophagus: Plan: EGD last week 10/[address] hCavez at [facility]. Cont PPI. (5) GERD (gastroesophageal reflux disease): Plan: PPI. (6) NSVT (nonsustained ventricular tachycardia): Plan: 12-beat run while in the ER yesterday. Echo with preserved EF. K and mag wnl. Tele thus far normal. Cont to monitor. (7) Gastroparesis: Plan: noted Admission and Anticipated Discharge Date Admission Date: October 06, 2021 Subjective patient reports ongoing diffuse abd discomfort not as bad as yesterday but still present no vomiting today but some nausea at times had had diarrhea at home - none today no fevers no chills no respiratory symptoms no recent travel no sick contacts patient had EGD at the [facility] on Thursday am reports her BPs were >200 systolic started with abdominal cramps on AM took first dose of lisinopril on THURSDAY Review of Systems Review of Systems: gen - no fevers, no chills cv - no chest pains over the last few months pulm - no chronic HECK GI - no blood per rectum Physical Exam Physical Exam: gen - NAD, pleasant mouth - MMM neck - no JVD heart - RRR, s1 s2, no murmur lungs - CTA b/l abd - no peritoneal signs but tender to palpation central abdomen, BS+, mild distension, no HSM ext - no edema, pulses 2+ b/l psych - a/o x 3 Results & Data Results & Data ([facility]) Vital Signs (Past 12 Hours) Vital Signs Temp Pulse Resp BP Pulse Ox Pulse Ox 10/07/21 20:16 97 10/07/21 18:56 37.5 C 70 16 171/91 H 96 10/07/21 16:00 36.8 C 62 18 117/89 96 10/07/21 11:19 36.9 C 64 16 105/72 96 Laboratory Results Laboratory Results - last 24 hr 10/07/21 10/07/21 05:57 05:57 WBC 7.53 RBC 3.54 L Hgb 11.8 L Hct 34.7 L MCV 98.0 MCH 33.3 MCHC 34.0 RDW Std Deviation 46.3 RDW Coeff of Heide 12.8 Plt Count 208 MPV 10.6 H Immature Gran % (Auto) 0.0 Neut % (Auto) 62.8 Lymph % (Auto) 27.0 [place] % (Auto) 7.0 Eos % (Auto) 2.9 Baso % (Auto) 0.3 Neut # (Auto) 4.73 Lymph # (Auto) 2.03 [place] # (Auto) 0.53 Eos # (Auto) 0.22 Baso # (Auto) 0.02 Immature Gran # (Auto) 0.00 Sodium 136 Potassium 4.1 Chloride 111 H Carbon Dioxide 18 L Anion Gap 7 BUN 15 Creatinine 0.99 D Est Cr Clr Drug Dosing 69.4 Est GFR ( Amer) 77.0 Est GFR (Non-Af Amer) 66.4 BUN/Creatinine Ratio 15.2 Glucose 84 Calcium 7.7 L Magnesium 2.1 Diagnostic Findings echo - EF preserved, normal valve function PG Care Time/CCT Total # of Minutes Spent Total Time Spent with Patient: Total time spent is greater than 50% in coordination of care (as documented) at patient's floor/unit and/or counseling patient: Coding Level of Care Code 51234 Subseq Hosp Care Lvl 2 Diagnoses Enteritis K52.9 Acute kidney injury N17.9 Hypertension I10 Bullock's esophagus K22.70 GERD (gastroesophageal reflux disease) K21.9 NSVT (nonsustained ventricular tachycardia) I47.2 Gastroparesis K31.84
[2021-10-08] MEDS: PIPERACILLIN/TAZOBACTAM 3.375 GM in DEXTROSE 5% 100 ML IV SCH (05:59)
[2021-10-08 06:25] LABS: Basophils # (auto) 0.02 K/uL (0-0.2); Basophils % (auto) 0.3 %; Eosinophils # (auto) 0.25 K/uL (0-0.5); Eosinophils % (auto) 3.4 %; Hematocrit (blood only) 34.4 % (37-47); Hemoglobin 11.6 g/dL (12.0-16.0); Immature Granulocytes # (auto) 0.01 K/uL (0.00-0.02); Immature Granulocytes % (auto) 0.1 %; Lymphocytes # (auto) 1.58 K/uL (1.2-3.4); Lymphocytes % (auto) 21.6 %; Mean Corpuscular Hemoglobin 32.5 pg (25-34); Mean Corpuscular Hgb Conc 33.7 g/dL (32-36); Mean Corpuscular Volume 96.4 fL (80-100); Mean Platelet Volume 10.4 fL (7.4-10.4); Monocytes # (auto) 0.44 K/uL (0.11-0.59); Neutrophils # (auto) 5.03 K/uL (1.4-6.5); Neutrophils % (auto) 68.6 %; Platelet Count 236 K/uL (130-400); RDW Coefficient of Variation 12.5 % (11.5-14.5); RDW Standard Deviation 43.9 fL (36.4-46.3); Red Blood Count 3.57 M/uL (4.2-5.4); White Blood Count 7.33 K/uL (4.8-10.8)
[2021-10-08 06:45] LABS: Albumin Globulin Ratio 1.4 (0.9-2); Albumin Level 3.5 gm/dl (3.4-5.0); BUN Creatinine Ratio 6.5 (10-20); Bilirubin,Total 0.7 mg/dl (0.2-1.0); Calcium 8.5 mg/dl (8.5-10.1); Creatinine Clr Calc Pharmacy 63.6 ml/min; Est GFR (African American) 69.3 ml/min; Est GFR (Non-African American) 59.8 ml/min; Globulin 2.5 gm/dl (2.5-4.0); Potassium 3.8 mmol/L (3.5-5.1)
--- NOTE | 2021-10-08 08:37 | Gastroenterology Progress Note ---
Date of Service October 08, 2021 Assessment & Plan (1) Enteritis: Plan: Enteritis: Patient continues to have improvement. Etiology perhaps viral. Continue supportive care. Recommend GAETANO Chamorro---Continue PPI V tach--per hospitalist Case reviewed with Dr. Chavez. Please refer to supervising physician addendum for further recommendations. I have spent 10 minutes of discrete time performing the activities of this visit which include but are not limited to review of the medical record, obtaining a history, physical exam, and entering information in the electronic record. Admission and Anticipated Discharge Date Admission Date: October 06, 2021 Supervising Physician Co-Signing Physician Notes I have seen and examined the patient. I agree with note above by ROGER Tom except as noted below. HPI Abd pain improved. Diarrhea improved. Tolerated liquids and I said ok for solid food. PE Abdomen pos bs, soft, no guarding nor rebound A/P enteriitis---improved. Ashtyn--PPI As the supervising physician, I , Familia Chavez MD have spent 10 minutes of discrete time performing the activities of this visit which include but not limited to review of the medical records, obtaining a history, physical exam and entering information in the electronic record. ROGER Tom has reported spending 10 minutes of discrete time with the activities of this visit. Subjective Patient awake alert and oriented this morning. States she is feeling significan tly better. States her blood pressure has been up and has been on oral meds as an outpatient. She states that blood pressure continues to be elevated at found likely to start her on medications while inpatient. Tolerated clear liquid diet last night and again so far this morning. She is hoping that her diet can be advanced. Denies any nausea or vomiting. She states she continues to have some abdominal discomfort. States she is just uncomfortable and rates it about a 2 out of 10. She had a very small formed bowel movement this morning with no blood noted in stools. Review of Systems Review of Systems: All systems reviewed & are unremarkable except as noted in Subjective Physical Exam Gastrointestinal (Abdomen): normal bowel sounds, soft, nontender, no hepatosplenomegaly Results & Data ([facility]) Vital Signs (Past 12 Hours) Vital Signs Temp Pulse Pulse Resp BP Pulse Ox 10/08/21 07:38 190/99 H 10/08/21 07:04 37.3 C 68 16 197/96 H 94 10/08/21 04:22 37.1 C 65 18 153/80 H 96 10/08/21 00:00 67 10/07/21 23:27 37.1 C 60 16 126/67 94 Laboratory Results Laboratory Results - last 24 hr 10/08/21 10/08/21 05:43 05:43 WBC 7.33 RBC 3.57 L Hgb 11.6 L Hct 34.4 L MCV 96.4 MCH 32.5 MCHC 33.7 RDW Std Deviation 43.9 RDW Coeff of Heide 12.5 Plt Count 236 MPV 10.4 Immature Gran % (Auto) 0.1 Neut % (Auto) 68.6 Lymph % (Auto) 21.6 Smith % (Auto) 6.0 Eos % (Auto) 3.4 Baso % (Auto) 0.3 Neut # (Auto) 5.03 Lymph # (Auto) 1.58 Smith # (Auto) 0.44 Eos # (Auto) 0.25 Baso # (Auto) 0.02 Immature Gran # (Auto) 0.01 Sodium 137 Potassium 3.8 Chloride 108 H Carbon Dioxide 23 Anion Gap 6 BUN 7 Creatinine 1.08 Est Cr Clr Drug Dosing 63.6 Est GFR ( Amer) 69.3 Est GFR (Non-Af Amer) 59.8 BUN/Creatinine Ratio 6.5 L Glucose 85 Calcium 8.5 Total Bilirubin 0.7 AST 17 ALT 17 Alkaline Phosphatase 42 Total Protein 6.0 Albumin 3.5 Globulin 2.5 Albumin/Globulin Ratio 1.4 Diagnostic Findings KUB X-Ray 10/07/21 07:00 XR KUB/Abdomen 1 view CLINICAL HISTORY: monitor progression of SBO TECHNIQUE: 1 view of the abdomen was obtained. Comparison: Comparison is made to CT abdomen pelvis 10/06/2021 FINDINGS: Lung bases are unremarkable. There is no evidence of gaseous distention of the small bowel. Some air and stool is seen in the large bowel. The bowel gas pattern is nonobstructive. IMPRESSION: No evidence of gaseous distention of the small bowel. Findings may represent improvement in small bowel obstruction allowing for differences in technique. ACT 112: Negative or not required by law. Electronically signed by: Darvin Horne M.D. 10/07/2021 8:42 AM
[2021-10-08] MEDS ORDERED: PANTOprazole 40 MG TAB PO SCH (09:00)
[2021-10-08] MEDS ORDERED: amLODIPine BESYLATE 5 MG TAB PO SCH (09:00)
--- NOTE | 2021-10-08 17:41 | Discharge Summary ---
Date of Service date of admission - October 06, 2021 date of discharge - October 08, 2021 Admission HPI Per Admitting Provider Mrs. Salcedo is a 51-year-old female with past medical history significant for GERD w/ Bullock's esophagus, gastroparesis, migraines, and hypertension who presents today with worsening abdominal pain and diarrhea. She had a surveillance EGD on Thursday, 10/02 for her Bullock's esophagus, procedure went well without complications. morning, she developed mild abdominal cramping that she was able to tolerate at home, however it has become progressively worse. Last evening, her pain became so severe that she was unable to sleep throughout the night and began having frequent episodes of nonbloody diarrhea. She has been without fever/chills, nausea, or vomiting. Has not been eating or drinking much due to her symptoms. Had an isolated day of similar symptoms several weeks ago but without diarrhea, however reports she took a laxative at that time and had felt fine up until now. In ED, VS wnl and stable, labs largely unremarkable, significant for WBC 11.8, cr 1.45 (no baseline). Stool panel negative. CT a/p with findings consistent with a severe nonspecific enteritis and small bowel loops are distended and fluid-filled, ? low-grade/partial obstruction secondary to the small bowel edema. Principal Diagnosis Small bowel enteritis - resolving Discharge Exam gen - NAD, pleasant mouth - MMM neck - no JVD heart - RRR, s1 s2, no murmur lungs - CTA b/l abd - no peritoneal signs, tenderness resolved, BS+, distension resolved, no HSM ext - no edema, pulses 2+ b/l psych - a/o x 3 Discharge Data Allergies Allergy/AdvReac Type Severity Reaction Status Date / Time No Known Allergies Allergy Verified 10/06/21 11:28 Consultations [facility] Procedures Performed Echocardiogram - * EF 60-65% * normal LV wall motion * essentially normal valve function Ordered Studies Abdomen/Pelvis CT 10/06/21 10:49 CT SCAN OF THE ABDOMEN AND PELVIS WITH IV CONTRAST CLINICAL HISTORY: Generalized abdominal pain. Diarrhea. Recent endoscopy. COMPARISON STUDY: Abdominal ultrasound dated 09/21/2020. TECHNIQUE: Following the IV administration of 94 cc of Optiray 320, CT scan of the abdomen and pelvis is performed from the lung bases to the proximal femora. Images are reviewed in the axial, sagittal, and coronal planes. IV contrast was administered without complication. A dose lowering technique was utilized adhering to the principles of ALARA. CT DOSE: 566.81 mGy.cm FINDINGS: Lung bases: The heart is normal in size and without pericardial effusion. The lung bases are clear. A small hiatal hernia is noted. Liver: The contrast-enhanced liver is normal in size, contour, and attenuation. There is no intrahepatic biliary ductal dilatation. The hepatic veins and portal veins are patent. Gallbladder: Unremarkable. Spleen: Normal in size and attenuation. Pancreas: Unremarkable. Adrenal glands: Unremarkable. 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 The renal moieties are normal in size and without hydronephrosis. Foci of cortical scarring are noted in the left upper pole. The renal moieties enhance symmetrically. Small bilateral nonobstructing renal calculi measure up to 4 mm. A circumaortic left renal vein is incidentally noted. Abdominal vasculature: The abdominal aorta is normal in course and caliber. Bowel: There are markedly thick walled and edematous loops of small bowel in the right mid to lower abdomen with mucosal hyperemia, surrounding inflammation, and interloop fluid. The appearance is consistent with a nonspecific enteritis. This spares the distal/terminal ileum. The upstream small bowel loops are distended and fluid-filled measuring up to 2.8 cm in diameter. Liquid stool is noted in the colon. There is mild colonic diverticulosis without CT evidence of acute diverticulitis. The appendix is well-visualized and normal. Peritoneum: There is a small volume of perihepatic and perisplenic ascites. There is also a small amount of interloop fluid throughout the abdomen and fluid in the pelvis. No intraperitoneal free air is identified. There is a fat- containing umbilical hernia. Lymphadenopathy: None. Pelvic viscera: The bladder is decompressed and appears circumferentially thick walled. The uterus and adnexa are normal as visualized. Skeletal structures: No lytic or blastic lesions are seen. IMPRESSION: 1. Findings are consistent with a severe nonspecific enteritis as detailed above. This is likely on an infectious or inflammatory basis and clinical correlation will be required. 2. There is no high-grade bowel obstruction. The upstream small bowel loops are distended and fluid-filled, and this likely represents low-grade/partial obstruction secondary to the small bowel edema. 3. There is interloop fluid and a small one of abdominopelvic ascites. 4. No intraperitoneal free air is identified. 5. Horseshoe kidney and bilateral nephrolithiasis. 6. The bladder wall appears circumferentially thickened. Correlate with clinical findings and urinalysis. 7. Additional findings as above. ACT 112: Negative or not required by law. Electronically signed by: Benjamin Lugo M.D. 10/06/2021 12:37 PM KUB X-Ray 10/07/21 07:00 XR KUB/Abdomen 1 view CLINICAL HISTORY: monitor progression of SBO TECHNIQUE: 1 view of the abdomen was obtained. Comparison: Comparison is made to CT abdomen pelvis 10/06/2021 FINDINGS: Lung bases are unremarkable. There is no evidence of gaseous distention of the small bowel. Some air and stool is seen in the large bowel. The bowel gas pattern is nonobstructive. IMPRESSION: No evidence of gaseous distention of the small bowel. Findings may represent improvement in small bowel obstruction allowing for differences in technique. ACT 112: Negative or not required by law. Electronically signed by: Darvin Horne M.D. 10/07/2021 8:42 AM Hospital Course (1) Enteritis: Etiology was uncertain. BioFire stool panel was fully negative. No h/o Crohn's disease. BP was never low during her recent outpatient EGD thus ischemic event highly unlikely. Patient was kept NPO for the first 24 hours of her stay. Her abdominal pain improved then resolved. She had no further diarrhea or vomiting. She was resumed on a clear liquid diet then advanced without difficulty. She was seen in consult by [facility]. It was felt that perhaps the enteritis was VIRAL in etiology (despite the negative BioFire stool panel). At discharge she was asked to slowly advance her diet over time. Of note - she had NO evidence of any obstructive process during the stay. (2) Acute kidney injury: Peak Cr 1.45 Cr was 1 at discharge ANDREW was 2nd to #1 (3) Hypertension: Out of an abundance of caution her lisinopril was held during this stay. She had started the lisinopril in the midst of her illness and there was some thought that perhaps she had had some form of atypical reaction to the medication. Retrospectively it was unlikely that the lisinopril had any role in her presentation. With that said her lisinopril was discontinued and she was initiated on amlodipine 5mg once daily at discharge. (4) Bullock's esophagus: EGD 10/02/[address] Familia Chavez at [facility]. Cont PPI. (5) GERD (gastroesophageal reflux disease): PPI. (6) NSVT (nonsustained ventricular tachycardia): 12-beat run was observed while in the ER awaiting admission. She had no symptoms from such. She was placed on telemetry during her 2-day stay and no further runs were seen. Echo with preserved EF. K and mag wnl. Advised f/u with cardiology as an outpatient. (7) Gastroparesis: (8) Kidney stones: seen incidentally on CT abd/pelvis discussed this finding gave handout discussed proper hydration for prevention of stones (9) Horseshoe kidney: seen incidentally on CT abd/pelvis discussed diagnosis with patient Total Time Total Time Spent Total Time Spent (In Minutes): 40 Discharge Plan Discharge Items Patient Disposition: Home - Self-Care Reason For Visit: ENTERITIS Discharge Diagnosis: Enteritis (inflammation/illness of small intestine) - resolving Exact cause uncertain - viral infection favored Activity: As commented below Activity Comment: gradually increase your activities over the next 2-3 days Exercise/Sports: Gradually increase as tolerated Driving/Machine Use: Resume 1 day after discharge Non-emergency contact: Primary Care Provider Call non-emergency contact if: you have any medication questions, your symptoms worsen, your pain is not controlled, your pain is worsening, your pain is unusual for you, your pain is concerning for you and you have a fever Follow-up/Referrals: Pedro Cruz [Primary Care Provider] - (1 week ) Diet: Low Fiber Addtl Attending Provider Instructions: Mrs Matias, You were hospitalized for small intestinal "enteritis." This is when the small intestine is inflamed/ill. The most common cause of enteritis is from infection, typically from a virus. Bacterial infections can also cause enteritis. A stool panel was fully negative but it is still possible that your enteritis was from infection. Incidentally we saw evidence of small kidney stones on the CT as well as something called "horseshoe kidney." The latter is something that you were born with. The kidney stones are not causing trouble at this time, and your kidney function is normal despite the horseshoe appearance. There is nothing to do for the horseshoe kidney. We ultimately resumed you on a diet and advanced this without difficulty. Dr Chavez from [facility] saw you in consult and felt that your enteritis was likely from infection. Lastly, while awaiting admission in the ER, you had a very brief (seconds) run of something called "non-sustained ventricular tachycardia." You did not have symptoms from it. We performed a heart ultrasound (echocardiogram) and your heart function, valves, etc were normal on this study. Your telemetry monitoring was normal while hospitalized. Your potassium and magnesium levels were normal. Since the echocardiogram was normal we generally don't have to do additional tests for this. However, please speak to your family doctor about seeing a is consultant as an outpatient. Recommendations - 1. For your high blood pressure - * stop the lisinopril * TAKE amlodipine 5mg once daily; start 10/09/2021 * occasionally some people see swelling in their feet as a side effect; others have constipation; but the side effects are not frequent 2. For any nausea - * ondansetron 4mg every 6 hours as needed 3. For any diarrhea - may use [id number] Imodium every 4-6 hours as needed. 4. Plenty of fluids over the next few days as you recover from the illness. 5. Nothing needs to be done for the small kidney stones seen on CT scan. However, to prevent additional stones from forming, please drink plenty of water on a daily basis. Some people also drink lemonade or Crystal Lite frequently as well. Heavy regular coffee consumption and heavy dark soda consumption does increase the risk of kidney stones. See handout. Return to [facility] if - * you have recurrent abdominal pains or worsening pains * you have nausea/vomiting that is not responding to your nausea medication * you have worsening diarrhea * you have fever over 100.5 degrees * any other concerns It was our pleasure to care for you at [facility]! Dr Galdamez Pending Studies at Discharge: No Stand-Alone Forms: My [facility], Smoking Cessation Medications and DC Order Prescriptions: New amlodipine [Norvasc] 5 mg Tablet 5 mg PO QAM Qty: 30 RF: 0 ondansetron 4 mg tablet,disintegrating 4 mg PO Q6H PRN (Reason: nausea and vomiting) Qty: 10 RF: 0 Continued pantoprazole 40 mg tablet,delayed release (DR/EC) 40 mg PO DAILY RF: 0 norethindrone-e.estradiol-iron [June FE 05/30 (28)] 1 mg-20 mcg (21)/75 mg (7) tablet 1 tab PO DAILY Qty: 84 RF: 3 Discontinued lisinopril 5 mg Tablet 5 mg PO HS RF: 0 Discharge Orders: Discharge Order (Routine); Ordered 10/08/21 Ordered By: Olman Hugo/Other Patient Handouts: Controlling High Blood Pressure, Understanding Kidney Stones Admission Data Admit Date/Time: 10/06/21 17:09 Attending Provider: Olman Galdamez Admit Provider: Tanika Marcos Primary Care Provider: Pedro Cruz Other Providers: Familia Chavez Other Interventions: Discharge Summary Assessment (RN) Last Done: 10/08/21 17:23 Coding Level of Care Code D/C DAY MANAGEMENT >30 MINS Diagnoses Enteritis K52.9 Acute kidney injury N17.9 Hypertension I10 Bullock's esophagus K22.70 GERD (gastroesophageal reflux disease) K21.9 NSVT (nonsustained ventricular tachycardia) I47.2 Gastroparesis K31.84 Kidney stones N20.0 Horseshoe kidney Q63.1
--- NOTE | 2021-10-13 11:51 | Coding Query ---
To promote full compliance with coding requirements relating to patient care, provider participation is requested in all cases of rn community health uncertainty. Please assist us with the question(s) below: Coding Question(s): The diagnosis(es) below was documented in the H&P, then subsequently fell off all further documentation. Please indicate if it is still a possible diagnosis or ruled out. Physician's Response(s): PARTIAL SMALL BOWEL OBSTRUCTION ( ) Diagnosed and POA ( ) Diagnosed and not POA ( x ) Ruled out ( ) Other (please specify) Thank you for your time, СВЕТЛАНА Rogers, [facility]
== END 2021-10-08 18:20 | disposition home or self-care (01) | DRG 392 ==
LOC: ED 09:58 → 2E 17:09 → SUATTDRO 17:09 → 2E 19:58
DX: K31.84 Gastroparesis; Z79.890 Hormone replacement therapy; K21.9 Gastro-esophageal reflux disease without esophagitis; Z20.822 Contact with and (suspected) exposure to COVID-19; I10 Essential (primary) hypertension; N17.9 Acute kidney failure, unspecified; E86.0 Dehydration; K22.70 Barrett's esophagus without dysplasia; I47.1 Supraventricular tachycardia; A08.4 Viral intestinal infection, unspecified; Z79.899 Other long term (current) drug therapy